=== PATIENT | male | born 1960 ===

== ENCOUNTER 2021-02-02 12:21 | Inpatient (IN) | payer MEDICARE, MEDICAID ==
[~2021-02-02] VITALS: Ht 170.2 cm; Wt 127.0 kg
[2021-02-02 12:58] LABS: BASOPHILS % (AUTO) 0.2 % (0-1); EOSINOPHILS % (AUTO) 0.2 % (0-6); HEMATOCRIT 42.3 % (42.0-52.0); HEMOGLOBIN 13.8 g/dl (14.0-17.9); LYMPHOCYTES # (AUTO) 0.5 X10'3 (1.1-4.8); LYMPHOCYTES % (AUTO) 6.9 % (21-51); MEAN CORPUSCULAR HEMOGLOBIN 28.9 PG (27.0-31.0); MEAN CORPUSCULAR HGB CONC 32.8 g/dL (33.0-36.5); MEAN CORPUSCULAR VOLUME 88.2 FL (78-98); MEAN PLATELET VOLUME 8.5 FL (7.4-10.4); MONOCYTES # (AUTO) 0.3 X10'3 (0-0.9); NEUTROPHILS % (AUTO) 88.7 % (42-75); PLATELET COUNT 170 X10'3 (140-440); RED BLOOD COUNT 4.79 X10'6 (4.70-6.10); RED CELL DISTRIBUTION WIDTH 13.7 % (11.5-14.5); WHITE BLOOD COUNT 7.9 X10'3 (4.5-11.0)
--- NOTE | 2021-02-02 13:03 | NUR ---
Pt's is Matteo and she can be reached at [phone]. His daughter Joseline can be reached at [phone]. Pt's mother is Saar and she can be reached at [phone].
--- NOTE | 2021-02-02 13:11 | NUR ---
Pt has not had anything to eat since yesterday. Pt and his family are all very poor historians. All they know is that he sees Dr Alexis for his heart, but don't know why. They also know he uses an inhaler as needed for asthma. They do not know anything further on his medical history.
[2021-02-02 13:20] LABS: ALANINE AMINOTRANSFERASE 11 U/L (12-78); ALBUMIN 3.4 G/DL (3.4-5.0); ALKALINE PHOSPHATASE 105 IU/L (46-116); ANION GAP 7 (8-16); ASPARTATE AMINO TRANSFERASE 14 U/L (10-37); BILIRUBIN,TOTAL 0.5 MG/DL (0.1-1.0); BLOOD UREA NITROGEN 12 MG/DL (7-18); BUN/CREATININE RATIO 14.3 (5.4-32.0); CALCIUM 8.7 MG/DL (8.5-10.1); CHLORIDE 106 MMOL/L (99-107); CREATININE 0.84 MG/DL (0.60-1.10); GLUCOSE 118 MG/DL (70-104); POTASSIUM 3.9 MMOL/L (3.5-5.1); SODIUM 141 MMOL/L (135-145); TOTAL CARBON DIOXIDE 28.3 MMOL/L (24-32); TOTAL PROTEIN 6.8 G/DL (6.4-8.2); eGFR > 90 ML/MIN
--- NOTE | 2021-02-02 13:30 | NUR ---
HR goes down to 37bpm,denies chest discomfort,patient c/o lower back pain and abdominal pain,Dr. Murcia aware.No new order at this time.We will monitor.
[2021-02-02] MEDS ORDERED: acetaminophen 650mg rectal suppository RC PRN (13:55)
[2021-02-02] MEDS ORDERED: HYDROcodone/acetaminophen 10/325mg tab PO PRN (13:55)
[2021-02-02] MEDS ORDERED: morphine 2 MG/ML inj. syringe IV PRN ×2 (13:55)
[2021-02-02] MEDS ORDERED: magnesium 4gm in 100ml NS 100 ML IV PRN (13:55)
[2021-02-02] MEDS ORDERED: potassium Cl 40MEQ/1/2NS 520ml 520 ML IV PRN ×2 (13:55)
[2021-02-02] MEDS ORDERED: HYDROcodone/acetaminophen 5mg/325mg tablet PO PRN (13:55)
[2021-02-02] MEDS ORDERED: magnesium hydroxide 30ml (MOM) UD suspension PO PRN (13:55)
[2021-02-02] MEDS ORDERED: ondansetron/PF 4mg/2ml inj IV PRN (13:55)
[2021-02-02] MEDS ORDERED: bisacodyl 10mg suppository rectal RC PRN (13:55)
[2021-02-02] MEDS ORDERED: diphenhydrAMINE 25mg capsule PO PRN (13:55)
[2021-02-02] MEDS: normal saline 1000ml 1,000 ML IV SCH (13:55)
[2021-02-02] MEDS ORDERED: mag hydrox/Alum hydrox/simeth 30ml oral suspension PO PRN (13:55)
[2021-02-02] MEDS ORDERED: magnesium Cl slow-release 64mg tablet PO PRN (13:55)
[2021-02-02] MEDS ORDERED: magnesium 2GM in 50ml NS 50 ML IV PRN (13:55)
[2021-02-02] MEDS ORDERED: acetaminophen 325mg tablet PO PRN ×2 (13:55)
[2021-02-02] MEDS ORDERED: potassium Cl 20 mEq SR tablet PO PRN ×2 (13:55)
[2021-02-02] MEDS ORDERED: ALBU18HF2 PO (14:12)
--- NOTE | 2021-02-02 14:20 | NUR ---
patient to ct.
[2021-02-02 15:00] VITALS: BP 128/47
--- NOTE | 2021-02-02 15:11 | NUR ---
Received report from Izabela QUEEN. Had opportunity to ask questions concerning Pt and plan of care. Awaiting arrival of Pt to room 4825E.
--- NOTE | 2021-02-02 15:35 | NUR ---
Pt arrived to room 3017A. Pt alert and oriented, vitals: HR 43, BP 128/47, RR 20, 98% 2L NC, 98.7. bed in low position, side rails up, call light in reach and. Will continue to monitor Pt as needed.
--- NOTE | 2021-02-02 16:37 | NUR ---
Pt states he does not want any blood products. Arm band has been placed on pt.
[2021-02-02 17:18] LABS: CLARITY,URINE CLOUDY (Clear); COLOR,URINE BROWN (Yellow); GLUCOSE, URINE NEGATIVE (Neg); KETONES,URINE 15 mg/dl (Neg); LEUKOCYTE ESTERASE ,URINE TRACE (Neg); NITRITES, URINE NEGATIVE (Neg); OCCULT BLOOD,URINE LARGE (Neg); PH,URINE 6.5 (4.8-8.0); PROTEIN,URINE 30 mg/dl (Neg)
[2021-02-02 17:30] LABS: UA COLLECTION TYPE CLN CATCH MIDSTREAM
[2021-02-02 17:37] LABS: RBC,URINE TNTC /HPF (0-2)
[2021-02-02 17:39] LABS: BACTERIA,URINE FEW /HPF (Neg); MUCUS STRANDS FEW /LPF (Neg); WBC,URINE 0-4 /HPF (0-4)
[2021-02-02 17:40] LABS: CAL OXALATE CRYSTALS FEW /HPF (NEGATIVE); SQUAMOUS EPITHELIAL CELL,UR FEW /LPF (FEW)
[2021-02-02 18:00] VITALS: BP 124/54
--- NOTE | 2021-02-02 18:00 | NUR ---
[facility] documentation: I have reviewed and agree with all interventions, assessments performed and documented by Jessenia Mooney RN.
--- NOTE | 2021-02-02 18:16 | NUR ---
Problems reprioritized. Patient report given, questions answered & plan of care reviewed with Cornel QUEEN.
[2021-02-02] MEDS: K and/or MAG REPLACEMENT MC SCH (20:00)
[2021-02-02] MEDS: heparin, porcine 5000 units/ml vial SQ SCH (20:35)
[2021-02-02 22:00] VITALS: BP 138/63
[2021-02-03] VITALS (10 sets, daily range): BP systolic 109–144; BP diastolic 48–88
[2021-02-03 01:29] LABS: BASOPHILS % (AUTO) 0.3 % (0-1); EOSINOPHILS % (AUTO) 0.5 % (0-6); HEMATOCRIT 41.4 % (42.0-52.0); HEMOGLOBIN 13.7 g/dl (14.0-17.9); LYMPHOCYTES # (AUTO) 1.5 X10'3 (1.1-4.8); LYMPHOCYTES % (AUTO) 22.6 % (21-51); MEAN CORPUSCULAR HEMOGLOBIN 28.9 PG (27.0-31.0); MEAN CORPUSCULAR VOLUME 87.6 FL (78-98); MEAN PLATELET VOLUME 9.4 FL (7.4-10.4); MONOCYTES # (AUTO) 0.7 X10'3 (0-0.9); NEUTROPHILS # (AUTO) 4.5 X10'3 (1.8-7.7); NEUTROPHILS % (AUTO) 66.6 % (42-75); PLATELET COUNT 162 X10'3 (140-440); RED BLOOD COUNT 4.73 X10'6 (4.70-6.10); RED CELL DISTRIBUTION WIDTH 13.9 % (11.5-14.5); WHITE BLOOD COUNT 6.8 X10'3 (4.5-11.0)
[2021-02-03 01:41] LABS: ALANINE AMINOTRANSFERASE 14 U/L (12-78); ALBUMIN/GLOBULIN RATIO 0.9 (1.1-1.5); ALKALINE PHOSPHATASE 99 IU/L (46-116); ANION GAP 6 (8-16); ASPARTATE AMINO TRANSFERASE 14 U/L (10-37); BILIRUBIN,TOTAL 0.6 MG/DL (0.1-1.0); BLOOD UREA NITROGEN 13 MG/DL (7-18); BUN/CREATININE RATIO 17.1 (5.4-32.0); CHLORIDE 110 MMOL/L (99-107); CREATININE 0.76 MG/DL (0.60-1.10); GLUCOSE 100 MG/DL (70-104); POTASSIUM 3.7 MMOL/L (3.5-5.1); SODIUM 146 MMOL/L (135-145); TOTAL CARBON DIOXIDE 30.2 MMOL/L (24-32); TOTAL PROTEIN 6.5 G/DL (6.4-8.2); eGFR > 90 ML/MIN
[2021-02-03 01:43] LABS: CHOL/HDL RATIO 3.3 (0.00-4.99); CHOLESTEROL 144 MG/DL (0-200); HDL CHOLESTEROL 44 MG/DL (35-60); LDL CHOLESTEROL 89 MG/DL (50-100); MAGNESIUM 2.1 MG/DL (1.5-2.4); PHOSPHORUS 3.3 MG/DL (2.3-4.5); TRIGLYCERIDES 73 MG/DL (20-135)
[2021-02-03] MEDS: normal saline 1000ml 1,000 ML IV SCH (03:15)
--- NOTE | 2021-02-03 06:26 | NUR ---
Patient in room PCU 3017. I have received report from Cornel QUEEN and had the opportunity to ask questions and assume patient care.
--- NOTE | 2021-02-03 06:27 | NUR ---
Patient in room PCU 3017. I have received report from Cornel QUEEN and had the opportunity to ask questions and assume patient care.
[2021-02-03] MEDS: K and/or MAG REPLACEMENT MC SCH (06:40)
[2021-02-03] MEDS: heparin, porcine 5000 units/ml vial SQ SCH (06:40)
[2021-02-03] MEDS ORDERED: vancomycin/NS 1 GM ADD-VANTAGE 250 ML IV ONE (08:00)
[2021-02-03] MEDS ORDERED: fentaNYL/PF 50MCG/1 ML 2ML syringe ONE (08:19)
[2021-02-03] MEDS ORDERED: midazolam 1 mg/ML 2ml injection ONE ×2 (08:19→09:10)
[2021-02-03] MEDS ORDERED: vancomycin 1,000mg inj ONE (08:19)
[2021-02-03] MEDS ORDERED: LIDOcaine 1% W/epiNEPHrine 1:100,000 20ml vial ONE (08:19)
[2021-02-03] MEDS ORDERED: Cefazolin 2GM/100ML NS IVPB 50 ML IV ONE (08:30)
[2021-02-03] MEDS ORDERED: CefTRIAXone/D5W-Rocephin 1gm 50 ML IV SCH (11:10)
[2021-02-03] MEDS ORDERED: ipratropium/albuterol 3ml nebule NEB PRN (11:10)
[2021-02-03] MEDS ORDERED: CEFD300C3 PO (13:21)
[2021-02-03] MEDS ORDERED: LACT1CAP55 PO (13:21)
--- NOTE | 2021-02-03 14:18 | NUR ---
[facility] documentation: I have reviewed and agree with interventions, assessments performed and documented by Kylie QUEEN. [facility] Medication Administration: For this medication-pass time frame, medication were reviewed, dispensed, administered and documented per hospital policy by Kylie QUEEN.
--- NOTE | 2021-02-03 14:46 | NUR ---
Spoke to Dr. Schneider, and was instructed to send the patient home and he would address the patient's medications so he will have pain medications at the pharmacy upon discharge.
[2021-02-03] MEDS ORDERED: HYDR-3965 PO (15:30)
--- NOTE | 2021-02-03 15:55 | NUR ---
Patient discharged at 1543, reviewed discharge packet before signing. All belongings were sent home with patient, PIV was removed with cannula intact, and tele monitoring was d/c'd. Patient new RX were faxed to [facility] in [place]. Patient was wheeled down by staff and left via private vehicle with .
== END 2021-02-03 15:40 | disposition home health service (06) | DRG 243 ==
LOC: ER 12:22 → ED HOLD 13:54 → EDBEDREQ 15:02 → PCU 3S 15:33
PROVIDERS: ADMIT Family Medicine; ATTEND Family Medicine
PROC: 0JH606Z Insertion of Pacemaker, Dual Chamber into Chest Subcutaneous Tissue and Fascia, Open Approach (ICD-10-PCS; principal; 2021-02-03)
PROC: 02H63JZ Insertion of Pacemaker Lead into Right Atrium, Percutaneous Approach (ICD-10-PCS; 2021-02-03)
PROC: 02HK3JZ Insertion of Pacemaker Lead into Right Ventricle, Percutaneous Approach (ICD-10-PCS; 2021-02-03)
DX: I49.5 Sick sinus syndrome (principal); N39.0 Urinary tract infection, site not specified; Z68.41 Body mass index [BMI] 40.0-44.9, adult; E66.01 Morbid (severe) obesity due to excess calories; K81.1 Chronic cholecystitis; I11.0 Hypertensive heart disease with heart failure; R55 Syncope and collapse; I50.9 Heart failure, unspecified; J44.9 Chronic obstructive pulmonary disease, unspecified; Z20.822 Contact with and (suspected) exposure to COVID-19; Z82.49 Family history of ischemic heart disease and other diseases of the circulatory system; Z87.891 Personal history of nicotine dependence; Z99.81 Dependence on supplemental oxygen; Z88.0 Allergy status to penicillin; Z71.3 Dietary counseling and surveillance
CPT/HCPCS: 33208; 36415; 70450; 71045; 80053; 80061; 81001; 83036; 83735; 83880; 84100; 84484; 85025; 85610; 87081; 87088; 93005; 93306; 93308; 96374; 96375; 99152; 99153; 99285; A4565; A4620; A6258; C1785; C1894; C1898; G0378; J0690; J0696; J1644; J2250; J2270; J2405; J3010; J3370